=== PATIENT | female | born 1960 | race Caucasian/White ===

== ENCOUNTER 2019-07-05 11:33 | Outpatient (CLI) | payer OTHER | END 2019-07-05 11:35 | disposition home or self-care (01) | LOC: SONOGRAMA 11:33 | DX: N84.0 Polyp of corpus uteri (principal); E55.9 Vitamin D deficiency, unspecified; N60.11 Diffuse cystic mastopathy of right breast; N60.12 Diffuse cystic mastopathy of left breast; N84.1 Polyp of cervix uteri ==